=== PATIENT | male | born 2000 | race Caucasian/White ===

== ENCOUNTER 2023-09-10 18:38 | Emergency (ER) | payer BC, SELFPAY ==
[2023-09-10 18:40] VITALS: BP 133/112
--- NOTE | 2023-09-10 18:52 | ED.MUSCINJ ---
HPI-Injury
General
Chief Complaint: Musculo-Skeletal Complaint
Source: patient
Exam Limitations: none
Time Seen by Provider: 09/10/23 18:52
Nursing documentation reviewed up to this point in time: agreed with
Travel History
Have you had any contact with someone who has COVID-19?: No
Do you have any symptoms of coronavirus? Fever > 100 degrees, chills, cough, shortness of breath, sore throat, loss of taste or smell, muscle aches, or headache?: No
History of Present Illness-Injury
Initial Injury comments:
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
Past History
Past History
ED Past Medical History: None
ED Past Surgical History: None
Social History
Tobacco: Non-smoker
Alcohol: Occasional
Personal: Single
Employment: Student
Review of Systems
Review of Systems
Allergies reviewed?: Yes
All Other Systems: ROS reviewed and negative except as documented in HPI and ROS
Musculoskeletal: Reports other (Pain and swelling along the medial aspect of the right hand)
Phy Exam
Physical Exam
Physical Exam:
PHYSICAL EXAMINATION:
General: no apparent distress, not acutely ill
Neuro: alert and oriented.
Psychiatric: well kept. interactive and cooperative
Musculoskeletal: Moves with ease
Skin: Warm, pink.
Injury Course
Orders/Labs/Results
Orders:
Orders
09/10/23 18:41
Hand, Right 3 View [CR Hand - Right Min 3 Views] Urgent
Comment:
Reason For Exam: pain
09/10/23 18:57
Cruz Wrap Right-Treatment ONCE
MDM/Problems Addressed
Differential Diagnosis Includes:
contusion, fracture
MDM/Problems Addressed:
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
X-ray right hand initially read by this examiner: No fracture noted.
Cruz wrap applied.
*Critical Care Note
Total Time (30-74mins, 75-104mins- exclusive of procedures): Not Applicable
ED Attending Note
-
Portions of this chart may have been created with voice recognition software.� Occasional wrong word or��sound alike� substitutions may have occurred due to the inherent limitations of voice recognition software.
Discharge Plan
Departure
Patient Disposition: Home (Routine Discharge)
Date of Disposition: 09/10/23
Time of Disposition: 19:25
Patient with high blood pressure during this ER visit?: Yes
Condition: Good
Discharge Problem:
Contusion of dorsum of right hand
Instructions: Contusion (DC)
Referrals:
Gabriel Cardoza MD [Active] - As needed
Activity Restrictions/Additional Instructions:
As we discussed, your x-ray shows no broken bones. Cool compress to the area 20 minutes off and on today and tomorrow
Ibuprofen 600 mg, with food, every 6 hours as needed for pain.
Wear the Cruz wrap as needed for swelling and comfort.
Interventions
Interventions:
*ED COVID-19 Vaccine History Last Done: 09/10/23 18:40
*Nursing Disposition Last Done: 09/10/23 19:43
ED-Musculoskeletal Assessment Last Done: 09/10/23 19:35
Discharge Date and Time
Discharge Date/Time: 09/10/23 19:44
Print Language: UKRAINIAN
[2023-09-10 19:37] VITALS: BP 152/83
== END 2023-09-10 19:44 | disposition home or self-care (01) ==
LOC: EMR 18:38
PROVIDERS: EMERGENCY PHYSICIAN Student in an Organized Health Care Education/Training Program
DX: S60.221A Contusion of right hand, initial encounter (principal); W21.03XA Struck by baseball, initial encounter; Y93.64 Activity, baseball; Y92.214 College as the place of occurrence of the external cause; R03.0 Elevated blood-pressure reading, without diagnosis of hypertension
CPT/HCPCS: 99283; 73130